=== PATIENT | female | born 1995 | race Caucasian/White ===

== ENCOUNTER → 2019-05-03 14:29 | Outpatient (CLI) | payer BC, SELFPAY ==
[2019-05-03 13:27] VITALS: BMI 21.9
[2019-05-03 14:53] LABS: Absolute Neutrophil Count 6.4 X10^3/uL (2.0-7.7); Basophil# 0.03 X10^3/uL; Basophil% 0.3 % (0-1); Eosinophil# 0.06 X10^3/uL; Eosinophils% 0.6 % (0-5); Hemoglobin 11.5 g/dL (12.0-15.0); Lymphocyte % 24.2 % (19-41); Mean Corp Hgb Conc 33.8 g/dL (32-36); Mean Corpuscular Hgb 29.9 pg (27.0-32.0); Mean Corpuscular Volume 88.5 fL (81-99); Mean Platelet Vol. 8.6 fl (6.2-12.0); Monocyte# 0.68 X10^3/uL; Monocyte% 7.1 % (0-10); NRBC Flagged by Analyzer 0 % (0-5); Neutrophil # 6.41 X10^3/uL (2.7-7.7); Neutrophil % 67.4 % (47-70); Platelet Count 358 K/mm3 (150-450); RBC Distribution Width CV 12.7 % (11.6-14.6); RBC Distribution Width SD 40.8 fl (35.1-43.9); Red Blood Count 3.84 M/mm3 (4.2-5.4); White Blood Count 9.5 K/mm3 (4.4-11.0)
[2019-05-03 19:58] LABS: Chlamydia Trachomatis by PCR Negative (Negative); Neisserai gonorrhoeae by PCR Negative (Negative); Probe Check PASS; Sample Adequacy Control PASS; Specimen Processing Control PASS
[2019-05-06 20:22] LABS: HPV Reflexed? NOT INDICATED
== END ==
PROVIDERS: Nurse Practitioner Women's Health; Referring Provider Obstetrics & Gynecology; Visit Provider Obstetrics & Gynecology
DX: Z34.01 Encounter for supervision of normal first pregnancy, first trimester (principal); Z12.4 Encounter for screening for malignant neoplasm of cervix
CPT/HCPCS: 36415; 85025; 86592; 86703; 86762; 86850; 86900; 86901; 87086; 87340; 87491; 87591; 88175; G0145

== ENCOUNTER → 2019-06-01 14:46 | Outpatient (CLI) | payer BC, SELFPAY ==
[2019-06-01 14:19] VITALS: BMI 21.9
[2019-06-02 09:25] LABS: HIV - WCH Non-Reactive (Nonreactive); Hepatitis B Surface Antigen Non-Reactive (Nonreactive); Rubella IgG 17.9 IU/mL
[2019-06-03 01:51] LABS: Rapid Plasmin Reagin (RPR) NONREACTIVE (NONREACTIVE)
== END ==
LOC: PAVLAB 14:48
PROVIDERS: Referring Provider Obstetrics & Gynecology; Visit Provider Obstetrics & Gynecology
DX: Z34.81 Encounter for supervision of other normal pregnancy, first trimester (principal)
CPT/HCPCS: 36415; 86592; 86703; 86762; 87340

== ENCOUNTER → 2019-07-13 12:08 | Outpatient (CLI) | payer BC, SELFPAY ==
[2019-06-01 14:19] VITALS: BMI 21.9
[2019-06-30 13:31] VITALS: BMI 21.9
--- NOTE | 2019-07-13 12:08 | US_ITS ---
STUDY: SECOND AND THIRD TRIMESTER OBSTETRICAL ULTRASOUND REASON FOR EXAM: Female, 23 years old anatomy LMP: February 26, 2019 TECHNIQUE: Transabdominal TECHNICAL QUALITY: Adequate. PRIOR ULTRASOUND: None. FINDINGS: There is a single intrauterine fetus. The fetus is in a cephalic presentation. There is demonstrated cardiac activity with a heart rate of 143 bpm. There is a normal amniotic fluid volume. The largest amniotic fluid pocket measures 5 cm x 6.5 cm. The amniotic fluid index (URBANO) is within normal limits. The placenta is posterior in location and is not low lying. There are Grade 0 placental changes. The cervix measures 7.5 cm in length. The adnexal regions are not visualized. BIOMETRY: BPD: 4.47 cm: 19 weeks, 3 days HC: 16.55 cm: 19 weeks, 1 days AC: 14.21 cm: 19 weeks, 3 days FL: 2.96 cm: 19 weeks, 0 days CI: 80.6% FL/BPD: 66.3% FL/HC: FL/AC: 20.9% HC/AC: 1.16 age by current US: 19 weeks, 2 days. EDUARD by current US: December 05, 2019. Estimated weight: 288 grams, +/- 43 grams, 33 %. age by LMP: 19 weeks, 3 days. EDUARD by LMP: December 04, 2019 ANATOMY: Gender: Male Cranium: Normal lateral ventricles. Normal choroid plexus. Normal cerebellum. Normal cisterna magna. Normal face, nose and lips. Chest: Normal 4-chamber heart. Abdomen/Pelvis: Normal diaphragm. Normal stomach. Normal abdominal wall. Normal cord insertion. Normal 3 vessel cord. Normal kidneys. Normal bladder. Spine: Normal cervical spine. Normal thoracic spine. Normal lumbar spine. Normal sacrum. Extremities: Normal bilateral upper extremities. Normal bilateral lower extremities. US/OB Anatomy Scan IMPRESSION: Single live intrauterine gestation with a mean gestational age of 19 weeks and 2 days. Electronically Signed: River Quiñones, at 13:52 EST , Service support ,
== END ==
PROVIDERS: Referring Provider Obstetrics & Gynecology; Visit Provider Obstetrics & Gynecology
DX: Z34.92 Encounter for supervision of normal pregnancy, unspecified, second trimester (principal); Z3A.19 19 weeks gestation of pregnancy
CPT/HCPCS: 76805

== ENCOUNTER → 2019-09-15 08:42 | Outpatient (CLI) | payer BC, SELFPAY ==
[2019-09-15 08:19] VITALS: BMI 21.9
[2019-09-15 09:33] LABS: Absolute Lymphocyte Count 2.53 X10^3/uL (0.83-4.51); Absolute Neutrophil Count 5.6 X10^3/uL (2.0-7.7); Basophil# 0.03 X10^3/uL; Basophil% 0.3 % (0-1); Eosinophil# 0.09 X10^3/uL; Hematocrit 27.6 % (37-47); Hemoglobin 8.9 g/dL (12.0-15.0); Lymphocyte # 2.53 X10^3/ul (4.0); Lymphocyte % 27.7 % (19-41); Mean Corp Hgb Conc 32.2 g/dL (32-36); Mean Corpuscular Hgb 30.4 pg (27.0-32.0); Mean Corpuscular Volume 94.2 fL (81-99); Mean Platelet Vol. 8.9 fl (6.2-12.0); Monocyte# 0.86 X10^3/uL; Monocyte% 9.4 % (0-10); NRBC Flagged by Analyzer 0 % (0-5); Neutrophil # 5.59 X10^3/uL (2.7-7.7); Neutrophil % 61.1 % (47-70); Platelet Count 342 K/mm3 (150-450); RBC Distribution Width CV 12.1 % (11.6-14.6); RBC Distribution Width SD 41.8 fl (35.1-43.9); Red Blood Count 2.93 M/mm3 (4.2-5.4); White Blood Count 9.2 K/mm3 (4.4-11.0)
[2019-09-15 09:39] LABS: Glucose Challenge Gest 1H 50g 78 mg/dL (70-140)
== END ==
PROVIDERS: Referring Provider Obstetrics & Gynecology; Visit Provider Obstetrics & Gynecology
DX: O26.899 Other specified pregnancy related conditions, unspecified trimester (principal); Z67.91 Unspecified blood type, Rh negative; Z80.3 Family history of malignant neoplasm of breast; Z3A.28 28 weeks gestation of pregnancy
CPT/HCPCS: 36415; 82950; 85025; 86850; 86900; 86901

== ENCOUNTER → 2019-09-22 09:02 | Outpatient (CLI) | payer BC, SELFPAY ==
[2019-09-15 08:19] VITALS: BMI 21.9
[2019-09-22 09:12] VITALS: BP 96/51; PULSE 85; RESP 16; TEMP 36.4; O2SAT 100; BMI 24.6
[2019-09-22] MEDS: 0.9% NaCl Peripheral Flush Adult/Peds IV (09:25)
[2019-09-22] MEDS: 0.9% NaCl IVPB Med Flush (250 mL) 15 ML IV (09:25)
[2019-09-22 11:50] VITALS: BP 94/46; PULSE 72; RESP 16; TEMP 36.3; O2SAT 100
== END ==
PROVIDERS: Referring Provider Nurse Practitioner Women's Health; Visit Provider Nurse Practitioner Women's Health
DX: O99.019 Anemia complicating pregnancy, unspecified trimester (principal)
CPT/HCPCS: 96365; 96366; J1756; J7050; A4216

== ENCOUNTER → 2019-09-29 08:56 | Outpatient (CLI) | payer BC, SELFPAY ==
[2019-09-22 09:12] VITALS: BMI 24.6
[2019-09-29] MEDS: 0.9% NaCl IVPB Med Flush (250 mL) 15 ML IV (09:11)
[2019-09-29 09:12] VITALS: BP 100/52; PULSE 79; RESP 16; TEMP 36.8; O2SAT 100; BMI 25.0
[2019-09-29 11:02] VITALS: BP 101/47; PULSE 76
== END ==
PROVIDERS: Referring Provider Nurse Practitioner Women's Health; Visit Provider Nurse Practitioner Women's Health
DX: O99.019 Anemia complicating pregnancy, unspecified trimester (principal)
CPT/HCPCS: 96365; 96366; J1756; J7050; A4216

== ENCOUNTER → 2019-10-06 09:04 | Outpatient (CLI) | payer BC, SELFPAY ==
[2019-09-22 09:12] VITALS: BMI 24.6
[2019-09-29 09:12] VITALS: BMI 25.0
[2019-10-06] MEDS: 0.9% NaCl Peripheral Flush Adult/Peds IV (09:10)
[2019-10-06] MEDS: 0.9% NaCl IVPB Med Flush (250 mL) 15 ML IV (09:10)
[2019-10-06 09:20] VITALS: BP 103/48; PULSE 86; RESP 16; TEMP 36.4; BMI 25.0
[2019-10-06 11:03] VITALS: BP 98/60; PULSE 87
== END ==
PROVIDERS: Referring Provider Nurse Practitioner Women's Health; Visit Provider Nurse Practitioner Women's Health
DX: O99.019 Anemia complicating pregnancy, unspecified trimester (principal)
CPT/HCPCS: 96365; 96366; J1756; J7050; A4216

== ENCOUNTER → 2019-10-12 10:21 | Outpatient (CLI) | payer BC, SELFPAY ==
[2019-10-12 10:04] VITALS: BMI 25.0
[2019-10-12 10:52] LABS: Absolute Lymphocyte Count 1.53 X10^3/uL (0.83-4.51); Absolute Neutrophil Count 4.8 X10^3/uL (2.0-7.7); Basophil# 0.03 X10^3/uL; Basophil% 0.4 % (0-1); Eosinophils% 1.4 % (0-5); Hematocrit 28.5 % (37-47); Hemoglobin 9.2 g/dL (12.0-15.0); Lymphocyte # 1.53 X10^3/ul (4.0); Lymphocyte % 21.3 % (19-41); Mean Corp Hgb Conc 32.3 g/dL (32-36); Mean Corpuscular Hgb 30.4 pg (27.0-32.0); Mean Corpuscular Volume 94.1 fL (81-99); Mean Platelet Vol. 8.9 fl (6.2-12.0); Monocyte# 0.63 X10^3/uL; Monocyte% 8.8 % (0-10); NRBC Flagged by Analyzer 0 % (0-5); Neutrophil # 4.84 X10^3/uL (2.7-7.7); Neutrophil % 67.3 % (47-70); Platelet Count 309 K/mm3 (150-450); RBC Distribution Width SD 46.7 fl (35.1-43.9); Red Blood Count 3.03 M/mm3 (4.2-5.4); White Blood Count 7.2 K/mm3 (4.4-11.0)
== END ==
PROVIDERS: Referring Provider Nurse Practitioner Women's Health; Visit Provider Nurse Practitioner Women's Health
DX: O99.019 Anemia complicating pregnancy, unspecified trimester (principal); Z3A.00 Weeks of gestation of pregnancy not specified
CPT/HCPCS: 36415; 85025

== ENCOUNTER → 2019-11-10 | Outpatient (CLI) | payer BC, SELFPAY ==
[2019-11-10 09:03] VITALS: BMI 26.2
== END | disposition home or self-care (01) ==
LOC: LABSPEC 15:16
PROVIDERS: Visit Provider Obstetrics & Gynecology
DX: Z34.01 Encounter for supervision of normal first pregnancy, first trimester (principal)
CPT/HCPCS: 87081

== ENCOUNTER → 2019-11-19 18:33 | Outpatient (CLI) | payer BC, SELFPAY ==
[2019-11-19 14:58] VITALS: BMI 26.2
--- NOTE | 2019-11-19 18:35 | US_ITS ---
STUDY: SECOND AND THIRD TRIMESTER OBSTETRICAL ULTRASOUND REASON FOR EXAM: Female, 24 years old. Growth. Small for gestational age. LMP: February 26, 2019 TECHNIQUE: The quadrant TECHNICAL QUALITY: Adequate. PRIOR ULTRASOUND: July 13, 2019 FINDINGS: There is a single intrauterine fetus. The fetus is in a cephalic presentation. There is demonstrated cardiac activity with a heart rate of 60 bpm. There is a normal amniotic fluid volume. The largest amniotic fluid pocket measures 3.17 cm. The amniotic fluid index (URBANO) is 8.54 cm. The placenta is posterior in location and is not low lying. There are Grade 3 placental changes. The cervix measures 3 cm in length. The bilateral adnexal regions are normal. BIOMETRY: BPD: 8.52 cm: 34 weeks, 3 days HC: 32.47 cm: 36 weeks, 6 days AC: 32.16 cm: 36 weeks, 1 days FL: 6.87 cm: 35 weeks, 2 days CI: 77 FL/BPD: 81 FL/HC: FL/AC: 21 HC/AC: 1.01 age by current US: 35 weeks, 5 days. EDUARD by current US: December 19, 2019. Estimated weight: 2759 grams, +/- 403 grams, 14 %. age by prior US: 37 weeks, 5 days. EDUARD by prior US: December 05, 2019. Age by LMP: 37 weeks, 6 days. EDUARD by LMP: December 04, 2019. US/OB Limited With Biometrics IMPRESSION: 1. Live single intrauterine at 35 weeks, 5 days. EDUARD is December 19, 2019. This is greater than within the week behind expected gestational age by initial ultrasound. 2. EFW 2759 g. This is at the 14th percentile. 3. Low normal amniotic fluid with an URBANO of 8.54 cm. 4. Posterior grade 3 placenta. 5. Vertex presentation. Electronically Signed: Shahbaz Joy DO at 20:22 EDT Tel [phone], Service support ,
== END ==
PROVIDERS: Visit Provider Obstetrics & Gynecology
DX: O36.5930 Maternal care for other known or suspected poor fetal growth, third trimester, not applicable or unspecified (principal); Z3A.35 35 weeks gestation of pregnancy
CPT/HCPCS: 76816

== ENCOUNTER 2019-11-24 23:03 | Inpatient (IN) | payer BC, SELFPAY ==
[2019-11-24 11:32] VITALS: BMI 26.1
[2019-11-24 22:58] VITALS: BMI 25.9
[2019-11-24 22:59] VITALS: BP 123/76; PULSE 82; TEMP 36.2; O2SAT 98
[2019-11-24 23:19] LABS: ROM Internal Control Test YES-OK TO RESULT pt. (Internal QC); ROM Patient Test POSITIVE (Negative)
[2019-11-24 23:49] LABS: Absolute Lymphocyte Count 1.27 X10^3/uL (0.83-4.51); Absolute Neutrophil Count 10.7 X10^3/uL (2.0-7.7); Basophil# 0.03 X10^3/uL; Basophil% 0.2 % (0-1); Eosinophil# 0.01 X10^3/uL; Eosinophils% 0.1 % (0-5); Hematocrit 33.8 % (37-47); Hemoglobin 11.5 g/dL (12.0-15.0); Lymphocyte # 1.27 X10^3/ul (4.0); Lymphocyte % 9.9 % (19-41); Mean Corpuscular Hgb 31.3 pg (27.0-32.0); Mean Corpuscular Volume 92.1 fL (81-99); Mean Platelet Vol. 9.2 fl (6.2-12.0); Monocyte# 0.68 X10^3/uL; Monocyte% 5.3 % (0-10); NRBC Flagged by Analyzer 0 % (0-5); Neutrophil # 10.74 X10^3/uL (2.7-7.7); Neutrophil % 83.9 % (47-70); Platelet Count 310 K/mm3 (150-450); RBC Distribution Width CV 13.9 % (11.6-14.6); RBC Distribution Width SD 47.3 fl (35.1-43.9); Red Blood Count 3.67 M/mm3 (4.2-5.4); White Blood Count 12.8 K/mm3 (4.4-11.0)
[2019-11-24 23:50] VITALS: PULSE 100; O2SAT 99
[2019-11-24 23:55] VITALS: PULSE 92; O2SAT 99
[2019-11-24 23:59] VITALS: BP 120/67; PULSE 75; TEMP 36.5
[2019-11-25] VITALS (22 sets, daily range): BP systolic 101–129; BP diastolic 51–72; PULSE 67–93; RESP 14–16; TEMP 36.6–37.4; O2SAT 97–98
--- NOTE | 2019-11-25 01:19 | HP.PCM_ITS ---
- Problem List (1) Active labor at term Status: Acute (2) YAMILE (iron deficiency anemia) Status: Chronic Qualifiers: (3) Family history of breast cancer in mother Status: Acute Comment: age 40 at diagnosis. Maternal grandmother and aunt with breast CA: states genetic testing negative. (4) Status: Acute Qualifiers: Comment: genetic screen- low risk male, declines carrier screen. declines afp sceening. Anatomy nl. Growth/URBANO normal on 11/18 (5) Rh negative state in antepartum period Status: Acute Comment: RhoGam given at 28 weeks (6) Supervision of high-risk Status: Acute Comment: PRR EDUARD 12/04/19 boy LO Spouse: Joaquim Jc sounds like raymond da (7) Anemia affecting Status: Chronic Qualifiers: Comment: s/p IV Venofer History and Physical Date of Admission: 11/25/19 Intake Vital Signs 11/24/19 BMI 26.1 11/24/19 Height 5 ft 2 in 11/24/19 Weight: 142 lb 11/24/19 BMI 25.9 11/24/19 BP 96/64 Intake Visit Reasons: 38 WK OB Chief Complaint: est ob On Site Soil Evaluator Required: No Is patient in pain?: No Allergies No Known Allergies Allergy (Verified 11/24/19 11:25) Medications vitamin#30 30 mg iron-10 mg iron-folic acid 1 mg-omg3 capsule 2 cap PO DAILY 06/01/19 [History Confirmed 11/24/19] Last Menstral Period: 01/25/19 Zika: Zika virus screening: Negative : No PFSH PFSH Social History (Updated 11/24/19 @ 11:[address] Cynthia Goode MD) household members: spouse housing: apartment number of children: 0 current occupational status: employed current occupation: [employer] [place] history of recent travel: Yes sexually active: Yes Smoking Status: Never smoker alcohol intake: never substance use type: does not use well-balanced diet: daily or most days caffeine: Yes Type: tea Number of servings: 1 what type of physical activity do you participate in: none seatbelt use: always do you feel safe at home: Yes additional social history: - Cristina Ann Pregancy History 1 Elective abortions Hx Para 0 Spontaneous abortions Hx # Term Pregnancies Ectopic pregnancies Hx # Pregnancies Multiple births # of living children HPI 38 WK OB: Details: CLAYTON TRUJILLO is a 24 year old at 38 weeks 5 days presents in act martinez labor. Patient is an uncomplicated without any issues. OB Visit EDUARD Calculator Estimated Delivery Date Method Current WG Current Estimate 12/04/19 Ultrasound #1 38w 4d Other Estimates 11/01/19 LMP (Certain) 43w 2d Expected Delivery Route/Plan Labor Preferences- labor support person: Babita mendoza) pain management options preferred: hydrotherapy, okay with touch, massage, words. cut cord/dad catch: yes : yes PP control planned: NFP discussed possible routes of delivery and associated risks: 2discussed possible delivery modalities and possible indications for each including R/B/A of , VAVD, and CS. questions answered. special requests: [] Specific Issue/Plans flu vaccine declined. tdap vaccine declines rhogam given LARC form signed yes movement and labor precautions reviewed. Problem list reviewed and updated with the most current details and appropriate orders placed. Continue routine care and follow up unless otherwise noted in visit notes/problem list details. Initial Weight: 124 lb Date EGA Weight BP Urine Prot Glucose FHR FuHt Pres Dilation Effaced St Visit Note 06/01/19 13w 3d 124 lb (+0 oz) 150 SM- no vb cramping 06/30/19 17w 4d 124 lb (+0 oz) 122/70 Negative Negative 150 SM no vb cramping dec afp screen. needs scheduled for anatomy scan 07/29/19 21w 5d 134 lb 8 oz (+10 lb 8 oz) 110/58 Negative Negative 150 SM- no vb lof good fm no regular ctx 09/15/19 28w 4d 139 lb (+15 lb) 102/58 Negative Negative 145 28 Sm- no vb lof good fm no regular ctx. cbc gct and rhogam today. 10/12/19 32w 3d 143 lb 2 oz (+19 lb 2 oz) 96/60 Negative Negative 141 31 MH-NO VB, LOF. Good FM. CBC repeat today. 10/27/19 34w 4d 142 lb (+18 lb) 100/64 Negative Negative 145 33 Cephalic SM- no vb lof good fm no regular ctx 11/10/19 36w 4d 145 lb 4 oz (+21 lb 4 oz) 92/56 Negative Negative 140 35 Cephalic SM- no vb lof good fm no regular ctx 11/19/19 37w 6d 144 lb 6 oz (+20 lb 6 oz) 110/60 Negative Negative 135 34 Cephalic SM- no vb lof good fm no regular ctx 11/24/19 38w 4d 142 lb (+18 lb) 96/64 Negative Negative 130 35 Cephalic 4 60 -2 SM- no vb lof irregular c tx. growth us WNL ACOG Second Trimester Second Trimester: Signs and Symptoms of Labor, Selecting a care provider, Reproductive Life Planning, Care Planning, Depression/Anxiety and Intimate Partner Violence; discussed Tobacco Cessation Diagnostics Diagnostics Diagnostics Hgb 11.8 g/dL (12.0-15.0) L 11/24/19 Hct 36.1 % (37-47) L 11/24/19 Details: HIV: Urine Culture: Sequential Screen: NIPT Screen: ROS Const Reports system reviewed and no additional complaints, except as documented Card Reports system reviewed and no additional complaints, except as documented Resp Reports system reviewed and no additional complaints, except as documented GI Reports system reviewed and no additional complaints, except as documented, Reports nausea Reports system reviewed and no additional complaints, except as documented Musc Reports system reviewed and no additional complaints, except as documented all other systems reviewed and negative Exam Const General: cooperative, healthy appearing, comfortable [facility] Head: normal to inspection Nose: external nose normal Face and sinus: normal facial exam Neck Neck: normal visual inspection, full ROM, no lymphadenopathy Thyroid: thyroid normal Chest Chest palpation & inspection: normal inspection of the chest Resp Effort & Inspection: normal respiratory effort GI Inspection: normal to inspection Palpation: soft, other (gravid uterus) Other: vertex and appropriate size for gestational age Other: Cervical Exam: 9 Extrem General: pedal edema Results POC Urinalysis 2 Dip (Clinic) Office Urine Glucose Negative Last Edit by Devora Ewing on 11/24/19 11:3 8 Office Urine Protein Negative Last Edit by Devora Ewing on 11/24/19 11:3 8 Assessment & Plan Problems 1. Anemia affecting O99.019 s/p IV Venofer 2. Rh negative state in antepartum period O26.899; Z67.91 RhoGam given at 28 weeks 3. Z34.90 genetic screen- low risk male, declines carrier screen. declines afp sceening. Anatomy nl. Growth/URBANO normal on 11/18 4. Supervision of high-risk O09.90 PRR EDUARD 12/04/19 boy LO Spouse: Joaquim Jc sounds like ta da 5. YAMILE (iron deficiency anemia) D50.9 Patient presents IAL, plan expectant management for ,. Pain management: Minimal intervention. GBS negative. Management of any complications: [none] I have reviewed the [facility] and made any clinically relevant updates. Orders Orders: POC Urinalysis 2 Dip (Clinic) Today Coding Level of Care Code OB Routine Diagnoses Anemia affecting O99.019 Rh negative state in antepartum period O26.899; Z67.91 Z34.90 Supervision of high-risk O09.90 YAMILE (iron deficiency anemia) D50.9
[2019-11-25] MEDS: Oxytocin 30 units/NS 500 ml 30 UNITS/500 ML IV.SOLN 334 UNITS IV (02:01)
--- NOTE | 2019-11-25 02:16 | PCM.OPRPT ---
Problem List (1) Active labor at term Status: Acute (2) YAMILE (iron deficiency anemia) Status: Chronic Qualifiers: (3) Family history of breast cancer in mother Status: Acute Comment: age 40 at diagnosis. Maternal grandmother and aunt with breast CA: states genetic testing negative. (4) Status: Acute Qualifiers: Comment: genetic screen- low risk male, declines carrier screen. declines afp sceening. Anatomy nl. Growth/URBANO normal on 11/18 (5) Rh negative state in antepartum period Status: Acute Comment: RhoGam given at 28 weeks (6) Supervision of high-risk Status: Acute Comment: PRR EDUARD 12/04/19 boy LO Spouse: Joaquim Jc sounds like raymond norton (7) Anemia affecting Status: Chronic Qualifiers: Comment: s/p IV Venofer Vaginal Delivery Maternal Presentation: Active Labor 24-year-old G1, P0 at 39 weeks presents in active labor Method of Induction: Pitocin Amniotic Membrane Rupture Type: Spontaneous Amniotic Fluid Description: Clear Final EDUARD: 12/04/19 Gestational age: 38 Weeks and 5 Days Date of Procedure: 11/25/19 Pre-Operative Diagnosis: In active labor Post-Operative Diagnosis: Same Surgery/ Procedure Performed: Spontaneous Vaginal Delivery Type of Anesthesia: None Description of Procedure: Patient began pushing and delivered the head in the DELL presentation. The head was delivered atraumatically . The anterior and posterior shoulders delivered without complication followed by the rest of the infant and the was placed on the maternal abdomen. Delayed cord clamping was employed for approximately 60 seconds. Cord was clamped and cut and gentle traction was applied to the cord and the placenta delivered spontaneously immediately following it was noted to be intact with three-vessel cord. The perineum and vagina were inspected and noted to have no laceration. EBL was 300 cc. Patient and tolerated delivery well. Multi Select Codes - Urinary/Genital Urinary/Genital CPT Codes: 70464 Vaginal Delivery [facility]
[2019-11-25] MEDS: 0.9% Saline Lock 10 ML Syringe IV (04:40)
[2019-11-25] MEDS: Prenatal Vits Tablet 1 TABLET PO (15:05)
[2019-11-26 03:12] VITALS: BP 99/55; PULSE 58; RESP 16; TEMP 36.2
[2019-11-26 03:13] VITALS: BP 99/55; PULSE 58
[2019-11-26] MEDS: Naproxen 250 MG Tablet 500 MG PO (05:38)
[2019-11-26 08:48] VITALS: BP 96/48; PULSE 61
--- NOTE | 2019-11-26 09:41 | PCM.PN.OB ---
Patient Problems: Active and Suspected Problems (Last Reviewed 11/24/19 @ 10:12 by Marjorie Jackson) Active labor at term (Acute) Subjective: doing well no complaints pain controlled no CP SOB N V ambulating well tolerating po lochia moderate, going well - Physical Exam Vitals/I&O's: Vital Signs Temp Pulse Resp BP Pulse Ox 97.2 F L 61 16 96/48 L 98 11/26/19 03:12 11/26/19 08:48 11/26/19 03:12 11/26/19 08:48 11/25/19 15:13 Oxygen Delivery Method Room Air Weight: 142 lb Body Mass Index (BMI) 25.9 Intake and Output for Last 24 Hours 11/24/19 11/25/19 11/26/19 23:59 23:59 23:59 Intake Total 500.00 / 500.00 Output Total 600 / 600 Balance -100.00 / -100.00 General: Alert, Oriented x3 Current Medications Acetaminophen (Tylenol) 1,000 mg PO Q8H PRN PRN PRN Reason: Pain Score 1-3/10 Bisacodyl (Dulcolax) 10 mg RECTAL UD PRN PRN Reason: If no BM Dibucaine (Dibucaine) 1 applic TOPICAL TID PRN PRN; Protocol PRN Reason: Discomfort Hydrocortisone (Hytone) 1 applic TOPICAL TID PRN PRN; Protocol PRN Reason: Discomfort Methylergonovine Maleate (Methergine) 0.2 mg IM X1 PRN PRN Reason: Excess bleeding/uterine atony Naproxen (Naprosyn) 500 mg PO Q8H PRN PRN PRN Reason: Pain Score 1-3/10 Last Admin: 11/26/19 05:38 Dose: 250 mg Documented by: Ondansetron HCl (Zofran) 4 mg IV Q4H PRN PRN PRN Reason: Nausea Oxycodone HCl (Oxyir) 5 - 10 mg PO Q4H PRN PRN PRN Reason: Pain Score 4-10/10 Multivit/Folic Acid/Iron (Prenatabs Fa) 1 tablet PO DAILY@1200 KASSIDY Last Admin: 11/25/19 15:05 Dose: 1 tablet Documented by: Senna/Docusate Sodium (Senokot-S, Chio-Colace) 1 - 2 tablet PO DAILY PRN PRN PRN Reason: Constipation Simethicone (Mylicon) 80 mg PO PCHS PRN PRN Reason: Indigestion/Stomach pain Sodium Chloride () 5 - 15 ml IV UD PRN PRN Reason: SALINE FLUSH Last Admin: 11/25/19 04:40 Dose: 10 ml Documented by: Medical Necessity - Tobacco Use Smoking Status: Never smoker Assessment/Plan All Active Problems (Last Reviewed 11/24/19 @ 10:12 by Marjorie Jackson) Active labor at term (Acute) Supervision of high-risk (Acute) (Acute) Family history of breast cancer in mother (Acute) Rh negative state in antepartum period (Acute) s/p PPD # 1 1. routine post delivery care 2. breast feeding- support given 3. rh negative- rhogam PRN 4. rubella immune
--- NOTE | 2019-11-26 09:42 | DCINST_ITS ---
Discharge Diet: No Restrictions Discharge Activity: Return to Normal Activity, May not drive while taking narcotic pain medications., May Shower May resume sexual activity in: 4-6 weeks Call your doctor if your incision/area has: Continuous Slow Oozing, Sudden Increased Bleeding, Increased Pain/ Swelling, Increased Redness, Foul Smelling Discharge Additional Instructions: If you experience any of the following, contact your healthcare provider. * Bleeding that soaks a pad every hour for 2 hours * Fever 100.4 or higher * Unrelieved incision or abdominal pain * Swelling, redness, discharge or bleeding from your incision or episiotomy site * Your incision begins to separate * Problems urinating (including inability to urinate or burning while urinating). * Visual changes * Severe headache * Flu-like symptoms * Pain or redness in one of both of your breasts * Pain, warmth, tenderness or swelling in your legs, especially the calf area * Frequent nausea and vomiting * Symptoms of depression or anxiety If you experience any of the following, call 911 or go to the nearest Emergency Room. * Chest pain * Problems breathing * Seizure activity * Partial or complete paralysis of a body part, slurred speech, weakness or drooping of the face, or a sudden inability to walk or hold your balance Allergies/Adverse Reactions: Allergies No Known Allergies Allergy (Verified 11/24/19 11:25) Medications to take at Discharge vitamin#30 30 mg iron-10 mg iron-folic acid 1 mg-omg3 capsule 2 cap PO DAILY 06/01/19 Please Follow Up With: Cynthia Goode MD - [phone] When: Call to make an appointment with your doctor in 6 weeks. If you had elevated Blood pressure or 4th degree laceration you will need to be seen in 2 weeks. Primary Care Physician: Care Physician,No Primary [Primary Care Provider] - Test Results: Test results from this visit will be discussed in further detail at your follow- up appointment, if applicable.
--- NOTE | 2019-11-26 09:42 | PCM.DCVAG ---
Discharge Diet: No Restrictions Discharge Activity: Return to Normal Activity, May not drive while taking narcotic pain medications., May Shower May resume sexual activity in: 4-6 weeks Call your doctor if your incision/area has: Continuous Slow Oozing, Sudden Increased Bleeding, Increased Pain/ Swelling, Increased Redness, Foul Smelling Discharge Additional Instructions: If you experience any of the following, contact your healthcare provider. Bleeding that soaks a pad every hour for 2 hours Fever 100.4 or higher Unrelieved incision or abdominal pain Swelling, redness, discharge or bleeding from your incision or episiotomy site Your incision begins to separate Problems urinating (including inability to urinate or burning while urinating). Visual changes Severe headache Flu-like symptoms Pain or redness in one of both of your breasts Pain, warmth, tenderness or swelling in your legs, especially the calf area Frequent nausea and vomiting Symptoms of depression or anxiety If you experience any of the following, call 911 or go to the nearest Emergency Room. Chest pain Problems breathing Seizure activity Partial or complete paralysis of a body part, slurred speech, weakness or drooping of the face, or a sudden inability to walk or hold your balance Allergies/Adverse Reactions: Allergies No Known Allergies Allergy (Verified 11/24/19 11:25) Medications to take at Discharge vitamin#30 30 mg iron-10 mg iron-folic acid 1 mg-omg3 capsule 2 cap PO DAILY 06/01/19 Please Follow Up With: Cynthia Goode MD - [phone] When: Call to make an appointment with your doctor in 6 weeks. If you had elevated Blood pressure or 4th degree laceration you will need to be seen in 2 weeks. Primary Care Physician: Care Physician,No Primary [Primary Care Provider] - Test Results: Test results from this visit will be discussed in further detail at your follow-up appointment, if applicable.
--- NOTE | 2019-11-30 12:32 | NURSING ---
Mother doing well on the follow up phone call. Bleeding slowing down. Baby nursing well. No symptoms of high bp. She really liked Marissa Do
== END 2019-11-26 12:25 | disposition home or self-care (01) | DRG 807 ==
LOC: WP 23:04 → OBT 11-25 08:51 → WP 11-25 08:51
PROVIDERS: Admitting Provider Obstetrics & Gynecology; Referring Provider Obstetrics & Gynecology; Visit Provider Obstetrics & Gynecology
DX: O99.02 Anemia complicating childbirth (principal); D50.9 Iron deficiency anemia, unspecified; Z37.0 Single live birth; Z3A.39 39 weeks gestation of pregnancy
CPT/HCPCS: 59025; 59050; 84112; 85025; 85461; 86850; 86870; 86900; 86901; 87635; 90384; 99218; G2023; A4216; G0378; J2790; U0003

== ENCOUNTER → 2019-11-26 21:44 | Outpatient (CLI) | payer BC, SELFPAY ==
[2019-11-24 22:58] VITALS: BMI 25.9
== END ==
PROVIDERS: Referring Provider Obstetrics & Gynecology; Visit Provider Obstetrics & Gynecology
DX: R79.9 Abnormal finding of blood chemistry, unspecified (principal)

== ENCOUNTER → 2019-12-09 12:58 | Outpatient (CLI) | payer BC, SELFPAY ==
[2019-11-24 22:58] VITALS: BMI 25.9
[2019-12-09 13:23] VITALS: BP 97/59; PULSE 62; RESP 16; TEMP 36.4; O2SAT 98
[2019-12-09] MEDS: 0.9% NaCl IVPB Med Flush (250 mL) 15 ML IV (13:29)
[2019-12-09] MEDS: 0.9% NaCl Peripheral Flush Adult/Peds IV (13:29)
[2019-12-09 15:25] VITALS: BP 96/52; PULSE 73; RESP 16; O2SAT 98
== END ==
PROVIDERS: Referring Provider Nurse Practitioner Women's Health; Visit Provider Nurse Practitioner Women's Health
DX: O99.019 Anemia complicating pregnancy, unspecified trimester (principal); Z3A.00 Weeks of gestation of pregnancy not specified
CPT/HCPCS: 96365; 96366; J1756; J7050; A4216

== ENCOUNTER → 2020-05-30 14:00 | Outpatient (CLI) | payer BC, SELFPAY ==
[2020-01-24 13:18] VITALS: BMI 23.6
== END ==
PROVIDERS: Referring Provider Obstetrics & Gynecology; Visit Provider Obstetrics & Gynecology
DX: O99.019 Anemia complicating pregnancy, unspecified trimester (principal)
CPT/HCPCS: 36415; 86850; 86900; 86901